=== PATIENT | female | born 1930 | race Caucasian/White ===

== ENCOUNTER 2016-09-14 09:21 | Emergency (ER) | payer OTHER ==
[~2016-09-14] VITALS: Ht 152.4 cm; Wt 49.9 kg
--- NOTE | 2016-09-14 09:46 | ED MVC/FALL/TRAUMA COMPLAINT ---
History of Present Illness General Chief Complaint: Fall Stated Complaint: BIBA FOR FALL Source: patient, old records, EMS Exam Limitations: unable to give history, dementia Vital Signs & Intake/Output Vital Signs & Intake/Output Vital Signs Date Time Temp Pulse Resp B/P Pulse O2 O2 Flow FiO2 Ox Delivery Rate 09/14 0834 98 Room Air Room Air 09/14 924 97.0 75 18 129/59 98 Room Air Allergies Coded Allergies: ciprofloxacin (From CIPRO) (UNKNOWN 09/14/16) codeine (UNKNOWN 09/14/16) Triage Note: BIBA FROM [facility] S/P UNWITNESSED FALL, PER EMS PT WAS SITTING UP ON ARRIVAL TO [facility], DRIED BLOOD NOTED TO BACK OF HEAD,ACCUCHECK: 114, PT IS AWAKE,ALERT, DISORIENTED WHICH IS BASELINE FOR PT PER [facility]. C-COLLAR MAINTAINED, PT YELLING OUT TO "PLEASE TAKE THIS OFF OR GET ME A KNIFE", PT POINTED TO C-COLLAR. Triage Nurses Notes Reviewed? yes HPI: PT S/P FALL THIS AM WITH LEFT OCC HEMATOMA, ON HEPARIN PER EMS. Past History Travel History Traveled to [place] past 21 day No Medical History Any Pertinent Medical History? see below for history Neurological: dementia Cardiovascular: hypertension, hyperlipidemia Musculoskeletal: osteoarthritis Psychiatric: anxiety Surgical History Surgical History: non-contributory Psychosocial History What is your primary language Sinhala Tobacco Use: Cognitive Impairment ETOH Use: denies use Illicit Drug Use: denies illicit drug use Family History Hx Contributory? No Review of Systems Review of Systems Constitutional: Reports: no symptoms. Eyes: Reports: no symptoms. Ears, Nose, Throat, Mouth: Reports: no symptoms. Respiratory: Reports: no symptoms. Cardiovascular: Reports: no symptoms. Gastrointestinal/Abdominal: Reports: no symptoms. Genitourinary: Reports: no symptoms. Musculoskeletal: Reports: no symptoms. Skin: Reports: no symptoms. Neurological/Psychological: Reports: no symptoms. All Other Systems: Reviewed and Negative Physical Exam Physical Exam General Appearance: SEE BELOW Comments: Gen.: Well-nourished, well-developed, no acute respiratory distress. Agitated at times and pulling at her cervical collar. Head: Normocephalic, Left occipital hematoma with tenderness. Eyes: Normal inspection bilaterally, suma, EOMI Ears: Normal inspection bilaterally Nose: Normal inspection Throat/mouth : Moist mucosa Neck: Supple, full range of motion, no goiter, nontender Heart: Regular rate and rhythm, no murmurs rubs or gallops Lungs: Clear to auscultation bilaterally with normal air entry Chest: Nontender Back: Normal range of motion, nontender Abdomen: Soft, nontender, nondistended, normal bowel sounds Pelvis: Stable and nontender Extremities: Normal range of motion grossly, no tenderness, no cyanosis clubbing or edema Neurologic: Cranial nerves grossly intact, speech is clear Skin: warm and dry and without ecchymoses or soft tissue swelling or erythema Psychiatric: Calm, cooperative, no apparent delusions or hallucinations Core Measures ACS in differential dx? No Severe Sepsis Present: No Septic Shock Present: No Progress Differential Diagnosis: fracture,dislocation,trauma Plan of Care: Orders Procedure Date/time Status PARTIAL THROMBOPLASTIN TIME 09/14 1053 Complete PROTHROMBIN TIME 09/14 105 Complete CBC WITHOUT DIFFERENTIAL 09/14 1053 Complete Laboratory Tests 09/14/16 1110: PT 12.1, INR 1.15, APTT 32, CBC w Diff NO MAN DIFF REQ, RBC 4.19 L, MCV 88.4, MCH 29.2, RDW 23.8 H, MPV 7.4, Gran % 72.4, Lymphocytes % 15.1 L, Monocytes % 10.8 H, Eosinophils % 1.3, Basophils % 0.4, Absolute Granulocytes 4.2, Absolute Lymphocytes 0.9 L, Absolute Monocytes 0.6, Absolute Eosinophils 0.1, Absolute Basophils 0, PUBS MCHC 33.0 Comments: PER SON, RECENT PSYCHIATRIC ISSUES and hip fracture as a result of a fall. Departure Departure Disposition: HOME OR SELF CARE Condition: Stable Clinical Impression Primary Impression: Left parietal scalp hematoma Qualifiers: Encounter type: initial encounter Qualified Code: S00.03XA - Contusion of scalp, initial encounter Secondary Impressions: Cervical arthritis Fall Qualifiers: Encounter type: initial encounter Qualified Code: W19.XXXA - Unspecified fall, initial encounter Scalp abrasion Qualifiers: Encounter type: initial encounter Qualified Code: S00.01XA - Abrasion of scalp, initial encounter Additional Instructions: Please refer to the W 10 form. Departure Forms: Customer Survey General Discharge Information
--- NOTE | 2016-09-14 10:49 | CT SCAN REPORT ---
EXAMINATION: CT HEAD WITHOUT CONTRAST CT CERVICAL SPINE WITHOUT CONTRAST CLINICAL INFORMATION: Status post fall on heparin with left occipital hematoma. COMPARISON: None. TECHNIQUE: Multidetector CT imaging of the head and cervical spine was performed without the use of intravenous contrast. Coronal and sagittal reformatted images were generated at the technologist workstation. DLP: 809.25 mGy-cm. FINDINGS: CT head: There is no evidence of acute intracranial hemorrhage or territorial infarction. No abnormal mass-effect or midline shift is seen. Flores to white matter differentiation is well preserved. No extra-axial fluid collections are identified. The ventricles and sulci are commensurately prominent consistent with [id number] diffuse volume loss. There are extensive areas of low attenuation in the periventricular and subcortical white matter bilaterally, consistent with sequelae of chronic microvascular ischemic disease. There are lacunar infarcts in the basal ganglia bilaterally. There are extensive atheromatous calcifications of bilateral cavernous internal carotid arteries. There are degenerative changes at the left temporomandibular joint. There is a small left parietal contusion of the scalp. The mastoid air cells are well-aerated. There is trace mucoperiosteal thickening in the posterior right sphenoid sinus. CT cervical spine: There is a degenerative anterolisthesis of C4 on C5 secondary to severe bilateral facet arthropathic changes. There is narrowing of intervertebral disc height at C5-C6 and C6-C7. There are multilevel marginal osteophytes, most prominent at C5-C6. There are no acute compression fractures and vertebral body heights are maintained. There is multilevel foraminal narrowing from uncovertebral osteophytes and facet arthropathy. The prevertebral soft tissues are unremarkable. The atlantooccipital articulations are normal. The lateral masses of C1 and C2 are normally aligned and the dens is intact. The cervicomedullary junction and spinal cord are grossly unremarkable. There are extensive atheromatous calcifications at the carotid bifurcations bilaterally and of the visualized great vessels of the neck. There are emphysematous changes at the lung apices. There are pleural calcifications at the left lung apex. The right lobe of the thyroid gland is markedly smaller compared to the left. Left lobe is heterogenous and has a 0.8 cm of relative low density and also has a small focal calcification. IMPRESSION: 1. There are no acute bleeds or territorial infarcts. 2. There are sequelae of diffuse volume loss and there are changes consistent with chronic microvascular ischemic disease with lacunar infarcts. 3. There is a small scalp contusion in the left parietal region. 4. There are multilevel degenerative changes in the cervical spine with a degenerative anterolisthesis of C4 on C5. There are no acute osseous findings. 5. The thyroid gland is asymmetric as described above. This could be correlated with prior surgical history, and the changes on the left lower can be further assessed with nonemergent ultrasound.
[2016-09-14 11:17] LABS: ABSOLUTE BASOPHIL COUNT 0 /CUMM (0.0-0.2); ABSOLUTE EOSINOPHIL COUNT 0.1 /CUMM (0.0-0.7); ABSOLUTE GRANULOCYTE CT 4.2 /CUMM (1.4-6.5); ABSOLUTE LYMPH COUNT 0.9 /CUMM (1.2-3.4); ABSOLUTE MONOCYTE COUNT 0.6 /CUMM (0.10-0.60); BASOPHIL % 0.4 % (0.0-2.0); EOSINOPHIL % 1.3 % (0-5); GRANULOCYTE % 72.4 % (42.2-75.2); MEAN CORPUSCULAR HGB 29.2 PG (27.0-31.0); MEAN CORPUSCULAR VOLUME 88.4 FL (81.0-99.0); MEAN PLATELET VOLUME 7.4 FL (7.4-10.4); PLATELET COUNT 397 /CUMM (130-400); RBC DISTRIBUTION WIDTH 23.8 % (11.5-14.5); RED BLOOD CELL CT 4.19 /CUMM (4.20-5.40); WHITE BLOOD CELL COUNT 5.8 /CUMM (4.8-10.8)
[2016-09-14 11:26] LABS: PT 12.1 SEC (9.4-12.5); PTT 32 SEC (25-37)
[2016-09-14 12:11] VITALS: BP 124/70
== END 2016-09-14 12:12 ==
LOC: ERH 09:21
PROVIDERS: Emergency Medicine
DX: S00.03XA Contusion of scalp, initial encounter (principal); M47.812 Spondylosis without myelopathy or radiculopathy, cervical region; S00.01XA Abrasion of scalp, initial encounter; W19.XXXA Unspecified fall, initial encounter; Y92.129 Unspecified place in nursing home as the place of occurrence of the external cause; Y93.9 Activity, unspecified
CPT/HCPCS: 96372